=== PATIENT | female | born 1955 | race Caucasian/White ===

== ENCOUNTER 2018-09-14 12:30 | Inpatient (IN) | payer OTHER ==
[~2018-09-14] VITALS: Ht 165.1 cm; Wt 79.4 kg
[2018-09-14] MEDS ORDERED: HYZAAR 100-251 EACH PO (14:27)
[2018-09-23] MEDS ORDERED: PERCOCET 5-3251 EACH PO (14:15)
[2018-09-23] MEDS ORDERED: INTESTINEX680 M1 PO (14:16)
== END 2018-09-23 16:19 | disposition home or self-care (01) | DRG 331 ==
LOC: O/R 09-21 06:10 → SURH 09-21 10:00 → MEDI 09-21 19:50 → SURH 09-23 16:19
PROVIDERS: Surgery
PROC: 4A033R1 Measurement of Arterial Saturation, Peripheral, Percutaneous Approach (ICD-10-PCS; 2018-09-21)
PROC: 0DTE4ZZ Resection of Large Intestine, Percutaneous Endoscopic Approach (ICD-10-PCS; principal; 2018-09-21 10:00)
PROC: 4A12X4Z Monitoring of Cardiac Electrical Activity, External Approach (ICD-10-PCS; 2018-09-22)
DX: K57.32 Diverticulitis of large intestine without perforation or abscess without bleeding (principal); G47.33 Obstructive sleep apnea (adult) (pediatric); I11.9 Hypertensive heart disease without heart failure